=== PATIENT | male | born 1985 | race Caucasian/White ===

== ENCOUNTER 2017-10-16 21:39 | Emergency (ER) | payer OTHER ==
[2017-10-16 21:45] VITALS: BP 145/89; PULSE 120; RESP 18; TEMP 97.6
--- NOTE | 2017-10-16 22:08 | XR ---
EXAMINATION TYPE: XR Hip LT and AP Pelvis DATE OF EXAM: 10/16/2017 COMPARISON: NONE HISTORY: Pain TECHNIQUE: A single AP view of the pelvis is obtained. Two views of the left hip are obtained. FINDINGS: The pelvic ring is intact. Proximal femur and hip joint appear normal on the left side. Sa croiliac joints are normal. CONCLUSION: Negative pelvis and left hip exam.
--- NOTE | 2017-10-16 22:10 | ED ---
Lower Extremity Injury HPI - General Chief Complaint: Extremity Injury, Lower Stated Complaint: hip pain Time Seen by Provider: 10/16/17 21:49 Source: patient, RN notes reviewed Mode of arrival: ambulatory Limitations: no limitations - History of Present Illness Initial Comments: 32-year-old male presents emergency Department chief complaint left hip pain. Patient states he was sledding with his son earlier today states that he was going down on the slide on his knees and states that he became turned around states is going backwards had a bump in fell off the sled onto his left hip. States that he's been having worsening pain as a night goes on. He states that it's much better at rest but any weightbearing or movement of his hip he has worsening of his symptoms. Patient denies any paresthesias. Denies any bowel bladder incontinence or retention. Denies any low back pain this time. Is no abdominal discomfort. Patient denies head injury no loss conscious. - Related Data Previous Rx's Medication Instructions Recorded Hydrocodone/Acetaminophen [[place] 1 tab PO Q6HR PRN #20 tab 10/16/17 5-325] Ibuprofen [Motrin] 600 mg PO Q8HR PRN #30 tab 10/16/17 Allergies Allergy/AdvReac Type Severity Reaction Status Date / Time No Known Allergies Allergy Verified 10/16/17 21:55 Review of Systems ROS Statement: Those systems with pertinent positive or pertinent negative responses have been documented in the HPI. ROS Other: All systems not noted in ROS Statement are negative. Past Medical History Past Medical History: No Reported History History of Any Multi-Drug Resistant Organisms: None Reported Past Surgical History: No Surgical Hx Reported Past Psychological History: No Psychological Hx Reported Smoking Status: Never smoker Past Alcohol Use History: Occasional Past Drug Use History: None Reported General Exam Limitations: no limitations General appearance: alert, in no apparent distress Head exam: Present: atraumatic, normocephalic, normal inspection Neck exam: Present: normal inspection, full ROM. Absent: tenderness, meningismus, lymphadenopathy Respiratory exam: Present: normal lung sounds bilaterally. Absent: respiratory distress, wheezes, rales, rhonchi, stridor Cardiovascular Exam: Present: regular rate, normal rhythm, normal heart sounds. Absent: systolic murmur, diastolic murmur, rubs, gallop, clicks GI/Abdominal exam: Present: soft, normal bowel sounds. Absent: distended, tenderness, guarding, rebound, rigid Extremities exam: Present: other (Mild tenderness to left hip, pain with range of motion upon movement of his left hip pedal pulses are equal bilaterally there is no discoloration of lower extremities there is no tenderness to mid) Back exam: Present: full ROM. Absent: tenderness, paraspinal tenderness, vertebral tenderness Neurological exam: Present: alert, oriented X3, CN II-XII intact, reflexes normal. Absent: motor sensory deficit Skin exam: Present: warm, dry, intact, normal color. Absent: rash Course Vital Signs 10/16/17 21:42 Temperature 97.6 F Pulse Rate 120 H Respiratory 18 Rate Blood Pressure 145/89 O2 Sat by Pulse 98 Oximetry Medical Decision Making - Medical Decision Making This is a 32-year-old male present emergency from for left hip pain. X-rays showed no acute fracture. Patient states it is very painful to move his leg he has no pain when he sustained. This most likely is a left hip contusion concern for possible inflammation causing nerve pain. We did discuss this. Patient was given pain medication advised ice and follow-up with the patient agrees to plan. Disposition Clinical Impression: Contusion of left hip Disposition: HOME SELF-CARE Instructions: Hip Contusion (ED) Additional Instructions: Please return to the Emergency Department if symptoms worsen or any other concerns. Prescriptions: Hydrocodone/Acetaminophen [Mex[place] 5-325] 1 tab PO Q6HR PRN #20 tab PRN Reason: Pain Ibuprofen [Motrin] 600 mg PO Q8HR PRN #30 tab PRN Reason: Pain Referrals: None,Stated [Primary Care Provider] - 1-2 days Time of Disposition: 22:21
[2017-10-16] MEDS ORDERED: IBUPROFEN 600 MG TAB PO STA (22:19)
[2017-10-16] MEDS ORDERED: HYDROcodone/APAP 5-325MG 1 EACH TAB PO STA (22:19)
== END 2017-10-16 22:36 | disposition home or self-care (01) ==
LOC: EC 21:39
DX: S70.02XA Contusion of left hip, initial encounter (principal); W19.XXXA Unspecified fall, initial encounter; Y93.23 Activity, snow (alpine) (downhill) skiing, snowboarding, sledding, tobogganing and snow tubing
CPT/HCPCS: 73502; 99283

== ENCOUNTER 2019-03-08 22:44 | Emergency (ER) | payer OTHER ==
[2019-03-08 22:56] VITALS: TEMP 98.8
--- NOTE | 2019-03-08 23:21 | XR ---
EXAM: XR Right Knee, 3 views CLINICAL HISTORY: ITS.REASON XR Reason: Pain TECHNIQUE: Three views of the right knee. COMPARISON: No relevant prior studies available. FINDINGS: Bones/joints: Nondisplaced vertically oriented fracture through the medial tibial plateau. Soft tissues: Large joint effusion. IMPRESSION: Nondisplaced vertically oriented intra-articular fracture through the medial tibial plateau.
[2019-03-09] MEDS: HYDROmorphone 1 MG/ML 1 ML SYRINGE IM STA ×2 (00:10→01:37)
--- NOTE | 2019-03-09 00:43 | CT ---
EXAM: CT Right Lower Extremity Without Intravenous Contrast, Knee CLINICAL HISTORY: ITS.REASON CT Reason: Pain TECHNIQUE: Axial computed tomography images of the right knee without intravenous contrast. CTDI is 4 mGy and DLP is 108 mGy-cm. This CT exam was performed using one or more of the following dose reduction techniques: automated exposure control, adjustment of the mA and/or kV according to patient size, and/or use of iterative reconstruction technique. COMPARISON: 03/08/19 radiograph FINDINGS: Bones/joints: Mildly displaced vertical fracture line through the medial tibial plateau with intra-articular extension. No dislocation of the knee joint. Soft tissues: Large joint effusion. IMPRESSION: Mildly displaced medial tibial plateau fracture with intra-articular extension.
[2019-03-09 01:42] VITALS: PULSE 70
--- NOTE | 2019-03-09 02:16 | ED ---
General Adult HPI - General Source: patient, RN notes reviewed, old records reviewed Mode of arrival: wheelchair Limitations: no limitations <Donald Garces - Last Filed: 03/09/19 02:55> <Danuta Ladd - Last Filed: 03/09/19 21:31> - General Chief complaint: Extremity Injury, Lower Stated complaint: Knee Injury Time Seen by Provider: 03/09/19 00:11 - History of Present Illness Initial comments: 34 year -old male patient no pertinent past medical history presents to ED with right knee injury. Patient reports that he was playing basketball, jumped up and later came down on his right knee and felt pain at the medial aspect of his tibia. She did not fall to the ground. Patient did not have any other se condary trauma. Patient denies any other complaints besides right knee pain. Systemic: Pt denies fatigue, fever/chills, rash. Pt denies weakness, night sweats, weight loss. Neuro: Pt denies headache, visual disturbances, syncope or pre-syncope. HEENT: Pt denies ocular discharge or irritation, otalgia, rhinorrhea, pharyngitis or notable lymphadenopathy. Cardiopulmonary: Pt denies chest pain, SOB, heart palpitations, dyspnea on exertion. Abdominal/GI: Pt denies abdominal pain, n/v/d. : Pt denies dysuria, burning w/ urination, frequency/urgency. Denies new onset urinary or bowel incontinence. MSK: Pt denies loss of strength or function in extremities. Neuro: Pt denies new onset weakness, paresthesias. (Donald Garces) - Related Data Previous Rx's Medication Instructions Recorded Hydrocodone/Acetaminophen [[place] 1 tab PO Q6HR PRN #20 tab 10/16/17 5-325] Ibuprofen [Motrin] 600 mg PO Q8HR PRN #30 tab 10/16/17 Hydrocodone/Acetaminophen [[place] 1 each PO Q6HR PRN #12 tab 03/09/19 5-325] Allergies Allergy/AdvReac Type Severity Reaction Status Date / Time No Known Allergies Allergy Verified 03/08/19 22:56 Review of Systems ROS Other: All systems not noted in ROS Statement are negative. <Donald Garces - Last Filed: 03/09/19 02:55> ROS Other: All systems not noted in ROS Statement are negative. <Danuta Ladd - Last Filed: 03/09/19 21:31> ROS Statement: Those systems with pertinent positive or pertinent negative responses have been documented in the HPI. Past Medical History Past Medical History: No Reported History History of Any Multi-Drug Resistant Organisms: None Reported Past Surgical History: No Surgical Hx Reported Past Psychological History: No Psychological Hx Reported Smoking Status: Never smoker Past Alcohol Use History: Occasional Past Drug Use History: None Reported <Donald Garces - Last Filed: 03/09/19 02:55> General Exam Limitations: no limitations <Donald Garces - Last Filed: 03/09/19 02:55> - General Exam Comments Initial Comments: Constitutional: NAD, AOX3, Pt has pleasant affect. HEENT: NC/AT, trachea midline, neck supple, no lymphadenopathy. Posterior pharynx non erythematous, without exudates. External ears appear normal, without discharge. Mucous membranes moist. Eyes PERRLA, EOM intact. There is no scleral icterus. No pallor noted. Cardiopulmonary: RRR, no murmurs, rubs or gallops, no JVD noted. Lungs CTAB in anterior and posterior bell. No peripheral edema. Abdominal exam: Abdomen soft and non-distended. Abdomen non-tender to palpation in all 4 quadrants. Bowel sounds active in LLQ. No hepatosplenomegaly. No ecchymosis Neuro: CN II-XII grossly intact. No nuchal rigidity. No raccon eyes, no dorantes sign, no hemotympanum. No cervical spinal tenderness. MSK: Right knee tender to palpation in the medial aspect of tibia. Distal pulses intact and equal. No other areas of tenderness. No posterior calf tenderness bilaterally, homans sign negative bilaterally. Posterior tibialis and radial pulse +2 bilaterally. Sensation intact in upper and lower extremities. Full active ROM in upper and lower extremities, 5/5 stregnth. (Donald Garces) Course Vital Signs 03/08/19 03/09/19 03/09/19 22:53 01:41 03:28 Temperature 98.8 F Pulse Rate 85 70 Respiratory 20 16 18 Rate Blood Pressure 136/89 135/87 135/97 O2 Sat by Pulse 97 100 Oximetry Medical Decision Making <Donald Garces - Last Filed: 03/09/19 02:55> <Danuta Ladd - Last Filed: 03/09/19 21:31> - Medical Decision Making 34-year-old male patient no pertinent past medical history presents to ED with right knee injury. Patient reports that he was playing basketball, jumped up and later came down on his right knee and felt pain at the medial aspect of his tibia. She did not fall to the ground. Patient did not have any other secondary trauma. Patient denies any other complaints besides right knee pain. Patient will signs stable, afebrile. Physical exam displayed:Right knee tender to palpation in the medial aspect of tibia. Distal pulses intact and equal. No other areas of tenderness. Patient fell displayed tibial plateau fracture. CT displayed mildly displaced medial tibial plateau fracture with intra-articular extension. Case was discussed with orthopedic on-call physician emergency room physician assistant Rich, who recommended knee immobilizer, analgesic and outpatient follow-up. Patient will be discharged, will not bear weight on right lower extremity, use crutches. Patient will follow-up with Dr. Tian on Sunday. case discussed with Dr. Ladd. (Donald Garces) I personally saw and evaluated the patient. Patient with minimal pain while resting, he has his leg wrapped with an ice pack. Patient has been hopping on 1 foot to the bathroom. I discussed patient options including admission for pain management and evaluation by orthopedics versus discharge home and outpatient follow-up. This time patient is comfortable with plan for placing a knee immobilizer and being discharged with oral narcotics and a plan for outpatient follow-up. Questions pertaining care were answered return parameters were discussed with the patient was discharged home in stable condition with a new immobilizer in place. (Danuta Ladd) Disposition Is patient prescribed a controlled substance at d/c from ED?: Yes When asked, does pt state using other controlled substances?: No If prescribed controlled substance>3 days was MAPS reviewed?: Prescribed <3 Days If opioid is for acute pain is fill amount 7 days or less?: Yes If Rx opioid, was Start Talking consent form obtained?: Yes <Donald Garces - Last Filed: 03/09/19 02:55> <Danuta Ladd - Last Filed: 03/09/19 21:31> Clinical Impression: Tibial plateau fracture Disposition: HOME SELF-CARE Condition: Stable Instructions (If sedation given, give patient instructions): Leg Fracture (ED) Additional Instructions: Patient to adhere to previously discussed treatment plan and will take medication(s) as directed. Patient to follow up with PCP in 1-2 days. Patient to return to ED if symptoms do not improve. Use crutches, do not bear weight and right lower extremity, follow up with orthopedic consult as well as primary care provider in 1-2 days. Prescriptions: Hydrocodone/Acetaminophen [[place] 5-325] 1 each PO Q6HR PRN #12 tab PRN Reason: Pain Referrals: None,Stated [Primary Care Provider] - 1-2 days Samy Tian DO [Doctor of Osteopathic Medicine] - 1-2 days
[2019-03-09] MEDS ORDERED: ACET/COD 300 MG/30 MG STARTER PACK 6 TAB BTL PO STA (02:44)
[2019-03-09] MEDS ORDERED: HYDROmorphone 1 MG/ML 1 ML SYRINGE IM STA (02:54)
[2019-03-09 03:31] VITALS: BP 135/97; RESP 18
== END 2019-03-09 03:42 | disposition home or self-care (01) ==
LOC: EC 22:44
DX: S82.141A Displaced bicondylar fracture of right tibia, initial encounter for closed fracture (principal); X58.XXXA Exposure to other specified factors, initial encounter; Y93.39 Activity, other involving climbing, rappelling and jumping off; Y92.310 Basketball court as the place of occurrence of the external cause
CPT/HCPCS: 99284; 96372 ×3; 73562; 73700; J1170

== ENCOUNTER 2019-03-17 08:18 | Day surgery (SDC) | payer SELFPAY ==
[2019-03-11 14:49] VITALS: BMI 22.9
[~2019-03-17 08:18] MED LIST: ACETAMINOPHEN TAB 500 MG TAB PO ONE; DEXAMETHASONE SOD PHOSPHATE 10 MG/ML 1 ML VIAL IV ONE; MIDAZOLAM 2 MG/2 ML VIAL IV PRN; ONDANSETRON 4 MG/2 ML VIAL IVP ONE; SCOPOLAMINE 1.5MG/72HR PATCH TRANSDERM ONE; TRANEXAMIC ACID 1,000 MG in SODIUM CHLORIDE 0.9% 100 ML IVPB ONE; ceFAZolin IN SWFI 2 GM/20 ML SYRINGE IVP ONE
[2019-03-17] MEDS ORDERED: LIDOCAINE 1% 20 ML VIAL (10MG/ML) FOR IV START INTRADERMA ONE (08:52)
[2019-03-17] MEDS: LACTATED RINGERS 1,000 ML IV SCH ×3 (08:55→18:01)
[2019-03-17] MEDS ORDERED: fentaNYL (PF) 50 MCG/ML 2 ML AMP IVP ONE (09:41)
[2019-03-17] MEDS ORDERED: ROPIVACAINE 1,100 MG, SODIUM CHLORIDE 0.9% 500 ML 330 ML MISCELLANE PRN ×2 (10:24)
--- NOTE | 2019-03-17 10:41 | P.ANPRN ---
Procedure Note - Anesthesia - Nerve Block Performed Right Adductor Canal Infusion Time Out Performed: Yes Date of Procedure: 03/17/19 Procedure Start Time: 09:40 Location of Patient Procedure: PreOp Indication: Acute Post-Operative Pain Specifically requested for management of pain by DrThalia: Skinny Calloway Sedation Type: Sedate with meaningful contact maintained Preparation: Sterile Prep Position: Supine Catheter Depth at Skin (cm): 7 Catheter: Indwelling Needle Types: Pajunk Needle Gauge: 18 Technique: Ultrasound Injectate: 0.5% Ropivacaine (see comment for volume) (20) Blood Aspirated: No Pain Paresthesia on Injection Noted: No Resistance on Injection: Normal Events: Uneventful and Well Tolerated
[2019-03-17] MEDS ORDERED: TRANEXAMIC ACID 1,000 MG/10 ML VIAL ONE (10:46)
[2019-03-17] MEDS ORDERED: ROPIVACAINE 5 MG/ML 30 ML VIAL ONE (10:46)
[2019-03-17] MEDS ORDERED: SODIUM CHLORIDE 0.9% 100 ML BAG ONE (10:46)
[2019-03-17] MEDS ORDERED: fentaNYL (PF) 50 MCG/ML 2 ML AMP ONE (10:46)
[2019-03-17] MEDS ORDERED: PROPOFOL 10 MG/ML 20 ML VIAL IV ONE (10:46)
[2019-03-17] MEDS ORDERED: LIDOCAINE 1% INJ 10MG/ML (20 ML MDV) ONE (10:46)
[2019-03-17] MEDS ORDERED: HYDROmorphone (PF) 1 MG/ML ONE (10:46)
[2019-03-17] MEDS ORDERED: MIDAZOLAM 2 MG/2 ML VIAL ONE (10:46)
[2019-03-17] MEDS ORDERED: LACTATED RINGERS 1,000 ML IV ONE (12:13)
[2019-03-17] MEDS ORDERED: ceFAZolin 1,000 MG in SODIUM CHLORIDE 0.9% 1,000 ML IRRIGATION ONE (12:40)
[2019-03-17] MEDS: HYDROmorphone 0.5 MG/0.5 ML SYRINGE IVP PRN ×2 (14:02→14:09)
[2019-03-17] MEDS ORDERED: HYDROcodone/APAP 7.5-325MG 1 EACH TAB PO ONE (14:50)
--- NOTE | 2019-03-17 15:13 | XR ---
EXAMINATION TYPE: XR knee limited RT, FL guidance operating room DATE OF EXAM: 03/17/2019 COMPARISON: NONE HISTORY: 34-year-old male ORIF right tibial plateau fracture FINDINGS: 2 intraoperative fluoroscopic images of the right knee show 3 screw fixation of the tibial plateau. Fluoroscopy time of 21 seconds was used during right tibial plateau fracture ORIF. 2 image/s documen t/s the procedure. IMPRESSION: Fluoroscopy as above.
[2019-03-17] MEDS ORDERED: TEMAZEPAM 15 MG CAP PO PRN (15:42)
[2019-03-17] MEDS ORDERED: HYDROmorphone 0.5 MG/0.5 ML SYRINGE IVP PRN ×2 (15:42)
[2019-03-17] MEDS ORDERED: HYDROmorphone 1 MG/ML 1 ML SYRINGE IVP PRN (15:42)
[2019-03-17] MEDS ORDERED: SENNOSIDES-DOCUSATE SODIUM 1 EACH TAB PO PRN (15:42)
[2019-03-17] MEDS ORDERED: diphenhydrAMINE 25 MG CAP PO PRN (15:42)
[2019-03-17] MEDS: HYDROcodone/APAP 7.5-325MG 1 EACH TAB PO PRN ×2 (17:59→23:55)
[2019-03-17] MEDS: ceFAZolin IN SWFI 2 GM/20 ML SYRINGE IVP SCH (18:00)
[2019-03-18] MEDS: LACTATED RINGERS 1,000 ML IV SCH ×2 (02:33→07:00)
[2019-03-18 02:53] VITALS: RESP 16; TEMP 98.3
[2019-03-18] MEDS: ceFAZolin IN SWFI 2 GM/20 ML SYRINGE IVP SCH (03:36)
[2019-03-18] MEDS: HYDROcodone/APAP 7.5-325MG 1 EACH TAB PO PRN ×2 (07:01→09:49)
[2019-03-18 08:02] VITALS: BP 143/91; PULSE 70
--- NOTE | 2019-03-18 08:39 | US ---
EXAMINATION TYPE: US venous doppler duplex LE RT DATE OF EXAM: 03/18/2019 8:27 AM COMPARISON: NONE CLINICAL HISTORY: Calf pain. Patient c/o right calf pain one day post right tibial patellar fx/repair SIDE PERFORMED: Right TECHNIQUE: The lower extremity deep venous system is examined utilizing real time linear array sonog lilliana with graded compression, doppler sonography and color-flow sonography. VESSELS IMAGED: Common Femoral Vein Deep Femoral Vein Greater Saphenous Vein * Femoral Vein Popliteal Vein Small Saphenous Vein * Proximal Calf Veins (* superficial vessels) Right Leg: Negative for DVT Grayscale, color doppler, spectral doppler imaging performed of the deep veins of the right lower ext remity. There is normal flow, compressibility, vascular waveforms. IMPRESSION: No ultrasound evidence for acute DVT in the right lower extremity.
[2019-03-18] MEDS ORDERED: RIVAROXABAN 10 MG TAB PO SCH (09:00)
[2019-03-18] MEDS ORDERED: HYDROcodone/APAP 7.5-325MG 1 EACH TAB PO PRN (09:20)
--- NOTE | 2019-03-18 09:29 | P.DS ---
Providers Expected date of discharge: 03/18/19 Attending physician: Skinny Calloway Primary care physician: Stated None - Discharge Diagnosis(es) (1) Pain in right knee Current Visit: Yes Status: Acute (2) Tibial plateau fracture Current Visit: Yes Status: Acute Hospital Course: This is a pleasant 34-year-old male last seen in our office with complaints of right knee pain after sustaining injury while playing basketball. After discussion and consideration, patient elected to proceed with an ORIF of the right medial tibial plateau. The patient was admitted to [facility] and underwent an ORIF of the right medial tibial plateau fracture on 03/17/[address] Calloway. The procedure was performed without complications or sequelae. The patient has done well postoperatively. The patient was seen and evaluated at bedside today and denies any new complaints. Pain is reasonably controlled. Dressing is clean dry and intact. Incision looks fine with no erythema or active drainage. Calf is soft and nontender. The patient has full foot and ankle motion without difficulty. Patient's right lower extremity is neurovascular intact. Patient is orthopedically stable for discharge to home today. Patient Condition at Discharge: Stable Plan - Discharge Summary Discharge Rx Participant: No New Discharge Prescriptions: New Aspirin [Adult Low Dose Aspirin EC] 81 mg PO DAILY #1 tablet. HYDROcodone/APAP 7.5-325MG [Duvall 7.5-325] 1 - 2 tab PO Q4-6H PRN #50 tab PRN Reason: Pain Sennosides-Docusate Sodium [Senokot-S] 1 tab PO BID #60 tablet Rivaroxaban [Xarelto] 10 mg PO DAILY #5 tab No Action Ibuprofen [Motrin] 600 mg PO Q8HR PRN #30 tab PRN Reason: Pain Hydrocodone/Acetaminophen [[place]uvall 5-325] 1 each PO Q6HR PRN #12 tab PRN Reason: Pain Discharge Medication List Ibuprofen [Motrin] 600 mg PO Q8HR PRN #30 tab 10/16/17 [Rx] Hydrocodone/Acetaminophen [Duvall 5-325] 1 each PO Q6HR PRN #12 tab 03/09/19 [Rx] Aspirin [Adult Low Dose Aspirin EC] 81 mg PO DAILY #1 tablet. 03/17/19 [Rx] HYDROcodone/APAP 7.5-325MG [Duvall 7.5-325] 1 - 2 tab PO Q4-6H PRN #50 tab 03/17/19 [Rx] Rivaroxaban [Xarelto] 10 mg PO DAILY #5 tab 03/17/19 [Rx] Sennosides-Docusate Sodium [Senokot-S] 1 tab PO BID #60 tablet 03/17/19 [Rx] Follow up Appointment(s)/Referral(s): Leanne Lawson, JIMENA [PHYSICIAN VIRTUAL RECRUITER] - 04/02/19 1:30 pm Patient Instructions/Handouts: *Surgery [facility] - On-Q Pain Pump Discharge Instructions, *Surgery [facility] - (Anesthesia) Discharge Instructions Outpatient Surgery, ORIF of a Leg Fracture (DC) Activity/Diet/Wound Care/Special Instructions: Maintain knee immobilizer. Non-Weight Bearing Right Lower Extremity with crutches. May change dressing 24h post op. May shower if no drainage from incision 48h post op. Immobilizer off only for showers. Discharge Disposition: HOME SELF-CARE
--- NOTE | 2019-04-02 12:00 | P.OP ---
Date of Procedure: 03/17/19 Procedure(s) Performed: PREOPERATIVE DIAGNOSES: 1. Right knee depression type medial tibial plateau fracture POSTOPERATIVE DIAGNOSES: 1. Right knee depression type medial tibial plateau fracture PROCEDURES PERFORMED: 1. Right knee medial plateau fracture open reduction internal fixation with void filling with cancellous allograft bone chips ANESTHESIA: Gen. CONTROL OFFICER: Leanne Lawson PA-C (assistance with exposure, hemostasis, retraction, fixation, closure, dressing, splint) COMPLICATIONS: None ESTIMATED BLOOD LOSS: 20 mL acute blood loss, 90 mL old blood (hemarthrosis). DISPOSITION: To post-anesthesia care unit INDICATIONS: Vel is a 34-year-old male with a history of sustaining a right medial tibial plateau fracture. Preoperative CT scanning has shown a comminuted tibial plateau fracture with joint depression of approximately 1 cm, along with a split type metaphyseal component which is basically nondisplaced. Considering this patient's relatively young age and activity level, I have advised reduction internal fixation of the medial tibial plateau fracture with metallic fixation and application of bone graft or substitute to fill the voids. I have discussed potential risks and complications as being inclusive of, but not limited to: Bleeding, infection, scarring, discomfort, blood vessel and/or nerve damage, stiffness, malunion, nonunion, posttraumatic arthritis, compartment syndrome, need for knee replacement, persistent limp, persistent weakness, hardware irritation, anesthesia risks, and other risks. The patient is aware these risks and wishes to proceed with surgery. The consent form has been signed. PROCEDURE: After appropriate consent was obtained, the patient was taken to the operating room placed in the supine position. Anesthesia was initiated, and after confirmation of adequate anesthesia, the patient was carefully positioned. Care was taken to make sure that all pressure points were adequately padded. Prepping and draping were completed in the usual aseptic fashion using ChloraPrep. Timeout was called, confirming patient identity, side, procedure, and administration of antibiotics. A pneumo tourniquet was used high on the right thigh. The limb was exsanguinated with an Esmarch bandage and the tourniquet was then inflated to 300 mmHg. An anteromedial approach was undertaken, utilizing a S-shaped curved incision directly adjacent to the tibial tubercle and progressing in the direction of the medial epicondyle. The incision was deepened down through skin and into subcutaneous tissues and down to fascia. Dissection proceeded down to periosteum of the tibia and into the joint where hemarthrosis was removed. A sub-meniscal arthrotomy was used to enter the joint and visualize the joint. An marketing assistant manager held valgus stress on the knee to open up the compartment during the case. Hemostasis was obtained throughout the case using electrocautery. Adequate visualization was accomplished using a headlight. The joint surface was noted to be comminuted and centrally depressed. ACL and PCL were noted to be normal. Medial meniscus was also intact. A bone window was created under fluoroscopic guidance using a large drill bit and a tamp was placed through this cortical window into the area of depressed comminution centrally. Using gentle mallet taps and a flat tamp, the joint surface was elevated under direct visualization until satisfactory reduction was accomplished. The void left by tamping the cancellus bone was then filled using allograft cancellus bone chips. [facility] was not available. Subsequently, fixation was performed using three 4.5 mm partially-threaded cannulated cancellus screws with washers from medial to lateral under fluoroscopic guidance. These were placed parallel to the joint surface approximately 5 mm from the subchondral bone. Screws were placed without event. C-arm imaging in both AP and lateral planes was used to guide hardware placement and confirm screw lengths. Range of motion testing after hardware placement showed range of motion from full extension to 130 of flexion easily without disturbance of the repaired joint surface. The joint was also stable in terms of varus valgus stress. Thorough irrigation was performed and final hemostasis was obtained using electrocautery. The medial meniscus was repaired using 3-0 FiberWire sutures. Stable repair was accomplished. Further repair of the soft tissues was accomplished using 0 Vicryl suture and strata fix suture to repair the fascia. Subcutaneous closure was performed using 2-0 Vicryl suture followed by running strata fix suture for the dermis. Exofin cyanoacrylate skin closure was performed over Exofin tape. Sterile dressing was applied and a knee immobilizer was applied. Patient tolerated the procedure well and taken to recovery room in stable condition. Sponge and needle counts were correct.
== END 2019-03-18 10:29 | disposition home or self-care (01) ==
LOC: OR 08:18 → 4SSUR 16:36 → OR 03-18 10:29
PROVIDERS: ATTEND Orthopaedic Surgery
DX: S82.141A Displaced bicondylar fracture of right tibia, initial encounter for closed fracture (principal); Y93.67 Activity, basketball; Y92.310 Basketball court as the place of occurrence of the external cause
CPT/HCPCS: 97161; 64448; 73560; 93971; 27536; C1713 ×3; J2250; J0690 ×3; J2001; J3010; J1170 ×3; J2795; J2704

== ENCOUNTER 2020-05-13 06:32 | Emergency (ER) | payer OTHER ==
[2020-05-13 06:40] VITALS: RESP 16; TEMP 97.5
--- NOTE | 2020-05-13 07:02 | ED ---
Psych HPI - General Chief Complaint: Psychiatric Symptoms Stated Complaint: MENTAL HEALTH Time Seen by Provider: 05/13/20 06:39 Source: patient Mode of arrival: ambulatory - History of Present Illness Initial Comments: Patient is a 35-year-old male presenting to emergency Department via police escort for psychiatric evaluation. According to police, patient has been arguing with his girlfriend throughout the evening. He has been sending texts to his mother stating that he "can no longer go on with it." Patient then got angry and was punching mirrors. He then sent some pictures of his wounds to his mother again. The mother got concerned and called police. When police arrived, patient threatened them stating he had a gun on him and would shoot both of them. Patient has been combative while in police custody. Patient was brought in for psych evaluation. He was petitioned by the police. Patient denies any suicidal or homicidal thoughts at this time. He does admit to drinking a bottle tonight, denies any other drug use. He is being uncooperative. He denies any other pertinent past medical history. - Related Data Home Medications Medication Instructions Recorded Confirmed No Known Home Medications 05/13/20 05/13/20 Allergies Allergy/AdvReac Type Severity Reaction Status Date / Time No Known Allergies Allergy Verified 05/13/20 12:25 Review of Systems ROS Statement: Those systems with pertinent positive or pertinent negative responses have been documented in the HPI. ROS Other: All systems not noted in ROS Statement are negative. Past Medical History Past Medical History: No Reported History Additional Past Medical History / Comment(s): rt knee injury-rt tibial plateau fx History of Any Multi-Drug Resistant Organisms: None Reported Past Surgical History: No Surgical Hx Reported Additional Past Surgical History / Comment(s): R knee orthopedic surgery Past Anesthesia/Blood Transfusion Reactions: No Reported Reaction Additional Past Anesthesia/Blood Transfusion Reaction / Comment(s): never has had general anesthesia and or blood transfusion Past Psychological History: No Psychological Hx Reported Past Alcohol Use History: Occasional Past Drug Use History: None Reported - Past Family History Mother Family Medical History: Cancer Additional Family Medical History / Comment(s): breast CA General Exam - General Exam Comments Initial Comments: GENERAL: Patient is well-developed and well-nourished. Patient is nontoxic. Patient is being uncooperative, not answering questions. HEAD: Atraumatic, normocephalic. EYES: Pupils equal round and reactive to light, extraocular movements intact, sclera anicteric, conjunctiva are normal. Eyelids were unremarkable. ENT: TMs normal, nares patent, oropharynx clear without exudates. Moist mucous membranes. NECK: Normal range of motion, supple without lymphadenopathy or JVD. LUNGS: Unlabored respirations. Breath sounds clear to auscultation bilaterally and equal. No wheezes rales or rhonchi. HEART: Regular rate and rhythm without murmurs, rubs or gallops. ABDOMEN: Soft, nontender, normoactive bowel sounds. No guarding, no rebound. No masses appreciated. : Deferred MUSCULOSKELETAL: Patient has full range of motion of bilateral hands and fingers. Normal extremities with adequate strength and normal range of motion, no pitting or edema. No clubbing or cyanosis. NEUROLOGICAL: Patient is alert and oriented x 3. Normal speech, normal gait. PSYCH: Normal mood, normal affect. SKIN: Warm, Dry, normal turgor,. Patient has multiple abrasions to bilateral hands, there is no active bleeding, controlled with bandages. Limitations: no limitations Course Vital Signs 05/13/20 06:36 Temperature 97.5 F L Pulse Rate 88 Respiratory 16 Rate Blood Pressure 127/95 O2 Sat by Pulse 97 Oximetry Medical Decision Making - Medical Decision Making Patient 35-year-old male brought in by police and was petitioned for suicidal ideations. Patient was intoxicated when he came in. Upon sober, he was evaluated by EPS. They did agree to a safety plan and patient will be discharged home. He will follow [facility]. Patient is agreement with this plan of care. Return parameters were discussed with the patient and he verbalized understanding. - Lab Data Lab Results 05/13/20 Range/Units 13:10 Urine Opiates Screen Not Detected (NotDetected) Ur Oxycodone Screen Not Detected (NotDetected) Urine Methadone Screen Not Detected (NotDetected) Ur Propoxyphene Screen Not Detected (NotDetected) Ur Barbiturates Screen Not Detected (NotDetected) U Tricyclic Antidepress Not Detected (NotDetected) Ur Phencyclidine Scrn Not Detected (NotDetected) Ur Amphetamines Screen Not Detected (NotDetected) U Methamphetamines Scrn Not Detected (NotDetected) U Benzodiazepines Scrn Detected H (NotDetected) Urine Cocaine Screen Not Detected (NotDetected) U Marijuana (THC) Screen Not Detected (NotDetected) Disposition Clinical Impression: Suicidal ideation Disposition: HOME SELF-CARE Condition: Stable Instructions (If sedation given, give patient instructions): Abuse of Alcohol (ED) Additional Instructions: Please return to the Emergency Department if symptoms worsen or any other concerns. Follow states the plan that was put in place by EPS. Follow up with CM. Is patient prescribed a controlled substance at d/c from ED?: No Referrals: None,Stated [Primary Care Provider] - 1-2 days
[2020-05-13 13:37] LABS: Amphetamine Screen,Urine Not Detected (NotDetected); Barbiturate Screen,Urine Not Detected (NotDetected); Benzodiazepines Screen,Urine Detected (NotDetected); Cocaine Screen,Urine Not Detected (NotDetected); Methadone Screen, Urine Not Detected (NotDetected); Opiate Screen,Urine Not Detected (NotDetected); Oxycodone Screen, Urine Not Detected (NotDetected); Phencyclidine Screen,Urine Not Detected (NotDetected); Tricyclic Antidepressant,Urine Not Detected (NotDetected); Urn Cannabinoid Scrn Not Detected (NotDetected)
[2020-05-13 14:15] VITALS: BP 120/88; PULSE 87
== END 2020-05-13 14:19 | disposition home or self-care (01) ==
LOC: EC 06:32
DX: R45.851 Suicidal ideations (principal); S60.512A Abrasion of left hand, initial encounter; S60.511A Abrasion of right hand, initial encounter; F10.129 Alcohol abuse with intoxication, unspecified; Y90.9 Presence of alcohol in blood, level not specified; W22.8XXA Striking against or struck by other objects, initial encounter
CPT/HCPCS: 80306; 82075; 99285